=== PATIENT | male | born 1955 | race Caucasian/White ===

== ENCOUNTER → 2022-10-11 14:31 | Outpatient (CLI) | payer MEDICARE, SELFPAY ==
--- NOTE | ~2022-10-11 | XR_ITS ---
EXAMINATION: XR thoracic spine 3V DATE: 10/11/2022 15:02 INDICATION: Dorsalgia, unspecified. TECHNIQUE: 3 views of thoracic spine on 4 radiographs were obtained. COMPARISON: None. FINDINGS: There is 9 degrees levocurvature of thoracolumbar spine. There is mild chronic anterior wed ging of T11 and T12 vertebral bodies, likely physiologic. Intervertebral disc heights are normal. The re are bridging endplate osteophytes at multiple levels in the spine, consistent with diffuse idiopat hic skeletal hyperostosis (DISH). IMPRESSION: 1. DISH. Reviewed, dictated and finalized at location E. IMPRESSION: 1. DISH.
== END ==
PROVIDERS: PCP Physician Assistant Medical; Visit Provider Physician Assistant Medical
DX: M48.14 Ankylosing hyperostosis [Forestier], thoracic region (principal)
CPT/HCPCS: 72072